=== PATIENT | female | born 1990 | race Two or more races ===

== ENCOUNTER 2020-07-23 12:03 | Inpatient (IN) | payer OTHER ==
[~2020-07-23] VITALS: Ht 144.8 cm; Wt 40.8 kg
[~2020-07-23 12:03] MED LIST: CARAFATE1 GM PO; PREVACID15 MG GT
[2020-07-24] MEDS ORDERED: DESMOPRESS10 MCG/0.1 (08:16)
[2020-07-24] MEDS ORDERED: SEMGLEE100 UNIT/1 (08:16)
== END 2020-07-27 17:08 | disposition home or self-care (01) | DRG 690 ==
LOC: ER 12:03 → SEC-K 20:27 → SURH 07-24 21:26 → SEC-K 07-24 21:47
PROVIDERS: ADMIT Internal Medicine; ATTEND Internal Medicine
PROC: 4A033R1 Measurement of Arterial Saturation, Peripheral, Percutaneous Approach (ICD-10-PCS; principal; 2020-07-23)
DX: N39.0 Urinary tract infection, site not specified (principal); J96.10 Chronic respiratory failure, unspecified whether with hypoxia or hypercapnia; E87.3 Alkalosis; Z99.11 Dependence on respirator [ventilator] status; G80.8 Other cerebral palsy; E86.0 Dehydration; E87.6 Hypokalemia; Z74.01 Bed confinement status; Z93.0 Tracheostomy status; Z09 Encounter for follow-up examination after completed treatment for conditions other than malignant neoplasm; Z20.822 Contact with and (suspected) exposure to COVID-19; Q02 Microcephaly

== ENCOUNTER 2020-09-24 13:15 | Emergency (ER) | payer OTHER ==
[~2020-09-24] VITALS: Ht 121.9 cm; Wt 36.3 kg
[~2020-09-24 13:15] MED LIST changes: +DESMOPRESS10 MCG/0.1; +SEMGLEE100 UNIT/1
== END 2020-09-25 15:34 | disposition home or self-care (01) ==
LOC: ER 13:15
DX: R00.0 Tachycardia, unspecified (principal); N39.0 Urinary tract infection, site not specified; E86.0 Dehydration; Z11.52 Encounter for screening for COVID-19

== ENCOUNTER 2021-02-11 21:42 | Inpatient (IN) | payer OTHER ==
[~2021-02-11] VITALS: Ht 152.4 cm; Wt 38.6 kg
[2021-02-11] MEDS ORDERED: ADVIL (22:13)
[2021-02-15] MEDS ORDERED: ADVIL100 M1 (16:01)
== END 2021-02-20 20:43 | disposition home or self-care (01) | DRG 309 ==
LOC: ER 21:42 → SEC-K 02-12 12:38 → MEDJ 02-12 12:38
PROVIDERS: ADMIT Internal Medicine; ATTEND Internal Medicine
PROC: 4A033R1 Measurement of Arterial Saturation, Peripheral, Percutaneous Approach (ICD-10-PCS; principal; 2021-02-12)
PROC: 02H633Z Insertion of Infusion Device into Right Atrium, Percutaneous Approach (ICD-10-PCS; 2021-02-13)
DX: I47.9 Paroxysmal tachycardia, unspecified (principal); Z99.11 Dependence on respirator [ventilator] status; B37.49 Other urogenital candidiasis; E87.3 Alkalosis; G80.8 Other cerebral palsy; Z74.01 Bed confinement status; Z93.0 Tracheostomy status; E86.0 Dehydration; Z20.822 Contact with and (suspected) exposure to COVID-19; Z93.1 Gastrostomy status; I45.6 Pre-excitation syndrome

== ENCOUNTER 2021-07-08 12:32 | Inpatient (IN) | payer OTHER ==
[~2021-07-08] VITALS: Ht 91.4 cm; Wt 39.9 kg
[~2021-07-08 12:32] MED LIST changes: +ADVIL; +ADVIL100 M1
[2021-07-18] MEDS ORDERED: POM (MEDICAMENTO EN NASAL (17:50)
[2021-07-18] MEDS ORDERED: INTESTINEX680 M1 PO (17:50)
[2021-07-18] MEDS ORDERED: CARAFATE1 GM PO (17:50)
[2021-07-18] MEDS ORDERED: FLUCONAZOLE150 MG PO (17:50)
[2021-07-18] MEDS ORDERED: PREVACID15 M1 PO (17:50)
== END 2021-07-18 20:10 | disposition home or self-care (01) | DRG 394 ==
LOC: ER 12:32 → MEDJ 23:09
PROVIDERS: Surgery; ADMIT Internal Medicine; ATTEND Internal Medicine
PROC: 0DP68UZ Removal of Feeding Device from Stomach, Via Natural or Artificial Opening Endoscopic (ICD-10-PCS; 2021-07-16)
PROC: 0DJ08ZZ Inspection of Upper Intestinal Tract, Via Natural or Artificial Opening Endoscopic (ICD-10-PCS; 2021-07-16)
PROC: 0DHA8UZ Insertion of Feeding Device into Jejunum, Via Natural or Artificial Opening Endoscopic (ICD-10-PCS; principal; 2021-07-16 07:00)
DX: K94.13 Enterostomy malfunction (principal); T85.598A Other mechanical complication of other gastrointestinal prosthetic devices, implants and grafts, initial encounter; J96.10 Chronic respiratory failure, unspecified whether with hypoxia or hypercapnia; K52.1 Toxic gastroenteritis and colitis; Z99.11 Dependence on respirator [ventilator] status; E23.2 Diabetes insipidus; K31.1 Adult hypertrophic pyloric stenosis; E86.0 Dehydration; G80.8 Other cerebral palsy; Q02 Microcephaly; Z74.01 Bed confinement status; K94.29 Other complications of gastrostomy; Z20.822 Contact with and (suspected) exposure to COVID-19